=== PATIENT | female | born 1925 | race Caucasian/White ===

== ENCOUNTER 2017-01-28 14:10 | Inpatient (IN) | payer OTHER ==
[~2017-01-28] VITALS: Ht 170.2 cm; Wt 48.5 kg
--- NOTE | ~2017-01-28 | EKG ---
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 : [id number] Requested By: Jong Quiros Order Number: [id number] MD: Deshaun Champion Measurements Intervals [place] Rate: 74 P: 24 MN: 166 QRS: -39 QRSD: 97 T: 52 QT: 384 QTc: 426 Interpretive Statements Sinus rhythm Probable left atrial enlargement Low voltage, precordial leads Left ventricular hypertrophy Anterior Q waves, possibly due to LVH No previous ECG available for comparison Electronically Signed On 01-28-2017 20:40:32 CDT by Deshaun Champion [email or web address] <ELECTRONICALLY SIGNED> By: Deshaun Champion MD 01/28/17 2040 1449 1449 Deshaun Champion MD /EPI
[~2017-01-28 14:10] MED LIST: NORVASC5 MG PO
[2017-01-28 14:32] VITALS: BP 162/66
[2017-01-28 15:29] LABS: ABSOLUTE NEUTROPHILS 3.7 thou/uL (1.4-8.2); BASOPHILS 1.1 % (0.0-2.0); EOSINOPHILS 1.2 % (0.0-3.0); HEMATOCRIT 38.2 % (37.0-47.0); HEMOGLOBIN 12.8 gm/dL (12.0-15.0); LYMPHOCYTES 22.8 % (24.0-44.0); MCH 30.1 pg (26.0-34.0); MCHC 33.5 g/dL (28.0-37.0); MCV 89.9 fL (80.0-100.0); MONOCYTES 10.6 % (1.0-8.0); PLATELET COUNT 242 thou/uL (150-400); POLYS 64.3 % (36.0-66.0); RBC 4.25 mil/uL (4.20-5.00); RDW 13.7 % (10.5-14.5); WBC 5.8 thou/uL (4.0-11.0)
[2017-01-28 15:37] LABS: MANUAL DIFF NO
[2017-01-28 15:42] LABS: ANION GAP 7 mmol/L (7-16); BUN 15 mg/dL (7-18); CALCIUM 9.1 mg/dL (8.5-10.1); CHLORIDE 102 mmol/L (98-107); CO2 27 mmol/L (21-32); GLUCOSE 107 mg/dL (74-106); POTASSIUM 4.2 mmol/L (3.5-5.1); SODIUM 136 mmol/L (136-145)
[2017-01-28 15:48] LABS: APTT 25.8 Seconds (24.5-32.8); PROTIME 10.7 Seconds (9.3-11.4)
[2017-01-28 15:51] LABS: TROPONIN-I < 0.04 ng/mL (<0.04-0.07)
[2017-01-28 16:27] LABS: URINE BILIRUBIN NEGATIVE (Negative); URINE BLOOD TRACE (Negative); URINE COLOR YELLOW; URINE GLUCOSE-RANDOM* NEGATIVE (Negative); URINE KETONES NEGATIVE (Negative); URINE NITRITE NEGATIVE (Negative); URINE PROTEIN (DIPSTICK) NEGATIVE (Negative); URINE SPECIFIC GRAVITY 1.015 (1.003-1.035); URINE UROBILINOGEN 0.2 E.U./dl (0.2-1.0)
[2017-01-28 16:32] LABS: SQUAMOUS >10 Many /LPF (0-3)
[2017-01-28 16:33] LABS: BACTERIA >30 Many /HPF (None Seen); CASTS None Seen /LPF (None Seen); URINE WBC >25 Many /HPF (0-5)
[2017-01-28 16:34] LABS: CRYSTALS None Seen /LPF (None Seen); URINE RBC 0-2 Rare /HPF (0-2)
[2017-01-28 18:22] VITALS: BP 162/66
[2017-01-28 18:54] VITALS: BP 162/76
[2017-01-28 20:02] VITALS: BP 130/70
[2017-01-29 04:13] VITALS: BP 133/52
[2017-01-29 05:41] LABS: HEMATOCRIT 37.4 % (37.0-47.0); HEMOGLOBIN 12.2 gm/dL (12.0-15.0); MCH 29.3 pg (26.0-34.0); MCHC 32.8 g/dL (28.0-37.0); MCV 89.5 fL (80.0-100.0); RBC 4.17 mil/uL (4.20-5.00); RDW 13.2 % (10.5-14.5); WBC 4.8 thou/uL (4.0-11.0)
[2017-01-29 05:54] LABS: CALCIUM 8.5 mg/dL (8.5-10.1); CREATININE 0.9 mg/dL (0.6-1.0); POTASSIUM 3.9 mmol/L (3.5-5.1)
[2017-01-29 07:15] VITALS: BP 157/72
[2017-01-29 16:15] VITALS: BP 109/84
[2017-01-29 19:20] VITALS: BP 156/89
[2017-01-30 04:15] VITALS: BP 170/90
[2017-01-30 08:36] VITALS: BP 193/81
[2017-01-30 16:00] VITALS: BP 153/67
[2017-01-30 19:30] VITALS: BP 163/75; BP 168/75
[2017-01-31 03:40] VITALS: BP 158/72
[2017-01-31 08:00] VITALS: BP 173/84
[2017-01-31] MEDS ORDERED: KEFLEX500 MG PO (12:36)
== END 2017-01-31 16:26 | DRG 689 ==
LOC: ER 14:10 → 4S 17:07 → EROBS 17:07 → 4S 18:58
PROVIDERS: Hospitalist; Nurse Practitioner
DX: N39.0 Urinary tract infection, site not specified (principal); G93.41 Metabolic encephalopathy; I10 Essential (primary) hypertension; F03.90 Unspecified dementia, unspecified severity, without behavioral disturbance, psychotic disturbance, mood disturbance, and anxiety; Z79.899 Other long term (current) drug therapy; Z90.49 Acquired absence of other specified parts of digestive tract; Z88.0 Allergy status to penicillin
CPT/HCPCS: 10102